=== PATIENT | female | born 1980 | race African-American/Black ===

== ENCOUNTER 2022-04-10 18:20 | Emergency (ER) | payer OTHER ==
[~2022-04-10] VITALS: Ht 170.2 cm; Wt 92.2 kg
[2022-04-10] MEDS ORDERED: ONE DAILY ESSE1 EACH (18:53)
[2022-04-10] MEDS ORDERED: VITAMIN B-12500 MCG (18:53)
[2022-04-10] MEDS ORDERED: SLOW RELEASE I142 M1 (18:53)
[2022-04-10] MEDS ORDERED: LEVOTHYROXINE50 MCG PO (18:53)
[2022-04-10] MEDS ORDERED: SODIUM CHLORIDE 0.9% 1000ML 1,000 ML IV SCH (19:45)
[2022-04-10] MEDS ORDERED: IOPAMIDOL 370 MG/ML 100 ML INFUS..BTL INJ ONE (20:17)
[2022-04-10] MEDS ORDERED: SODIUM CHLORIDE 0.9% 1000ML 1,000 ML ONE (20:19)
[2022-04-10] MEDS ORDERED: KETOROLAC TROMETHAMINE 30 MG/ML VIAL IV STA (21:00)
[2022-04-10] MEDS ORDERED: CYCLOBENZAPRINE10 MG PO (22:08)
[2022-04-10] MEDS ORDERED: PREDNISONE20 MG PO (22:10)
[2022-04-10] MEDS ORDERED: HYDROCODON-ACE1 EA12 PO (22:12)
== END 2022-04-10 22:38 | disposition home or self-care (01) ==
LOC: FSED 18:38
DX: M54.12 Radiculopathy, cervical region (principal); M62.838 Other muscle spasm; D51.0 Vitamin B12 deficiency anemia due to intrinsic factor deficiency; E03.9 Hypothyroidism, unspecified; L40.9 Psoriasis, unspecified; Z86.718 Personal history of other venous thrombosis and embolism
CPT/HCPCS: 71046; 80053; 81025; 82553; 84484; 85025; 85379; 93005; 99284; J7030; Q9967